=== PATIENT | female | born 1990 | race Caucasian/White ===

== ENCOUNTER 2016-12-15 09:32 | Emergency (ER) | payer OTHER ==
[~2016-12-15] VITALS: Ht 165.1 cm; Wt 72.6 kg
[~2016-12-15 09:32] MED LIST: TYLENOL325 M1 PO
[2016-12-15 09:54] VITALS: BP 131/92
--- NOTE | 2016-12-15 09:58 | NUR ---
PATIENT TO BED 7 AT THIS TIME,
--- NOTE | 2016-12-15 10:00 | NUR ---
26/F BIB SELF C/O RLQ PAIN RADIATING UP SIDE X 3 DAYS, NO FEVER, MINIMAL URINARY BURNING. DENIES FEVER/N/V. BOWEL SOUNDS PRESENT X4. ABD FEEL SOFT, SLIGHTLY TENDER. STS LMP MID OCTOBER, STS HAS IRREGULAR PERIODS. URINE CUP PROIVDED FOR SAMPLE. PT AMBULATE TO RESTROOM.
--- NOTE | 2016-12-15 10:16 | NUR ---
Patient being evaluated by physician at bedside.
[2016-12-15] MEDS ORDERED: KETOROLAC 30 MG/ML VIAL IVP ONE (10:20)
--- NOTE | 2016-12-15 10:31 | NUR ---
20G IV TO LAC. BLOOD DRAWN AND SENT TO LAB. CT AT BEDSIDE TO TAKE PT.
--- NOTE | 2016-12-15 10:44 | NUR ---
PT BACK FROM CT. MEDS GIVEN PER DEC.
--- NOTE | 2016-12-15 11:15 | NUR ---
Patient being RE-evaluated by physician at bedside.
[2016-12-15 11:30] VITALS: BP 128/90
--- NOTE | 2016-12-15 11:31 | NUR ---
Patient discharged with v/s stable. Written and verbal after care instructions given and explained. Patient alert, oriented and verbalized understanding of instructions. Ambulatory with steady gait. All questions addressed prior to discharge. ID band removed. Patient advised to follow up with PMD. Rx of CIPRO, FLAGYL, NORCO 5-325, MOTRIN given. Patient educated on indication of medication including possible reaction and side effects. Opportunity to ask questions provided and answered.
== END 2016-12-15 11:31 | disposition home or self-care (01) ==
LOC: MED 09:37
DX: K57.32 Diverticulitis of large intestine without perforation or abscess without bleeding (principal)
CPT/HCPCS: 36415; 74176; 80053; 81001; 81025; 83690; 85025; 96374; 99285; J1885

== ENCOUNTER 2016-12-28 11:38 | Emergency (ER) | payer OTHER ==
[~2016-12-28] VITALS: Ht 162.6 cm; Wt 78.5 kg
[2016-12-28 11:44] VITALS: BP 137/80
--- NOTE | 2016-12-28 11:45 | NUR ---
PATIENT PRESENTS TO ED WITH LEFT KNEE ABRASION . PT STATES SHE WAS RIDING 4 WHEELERS THIS PAST MONDAY AND FELL, RESULTING IN ABRASION TO LEFT KNEE. PT ALSO STATES SHE DOESN'T HAVE ANY PAIN ASSOCIATED W/ABRASION, BUT HER KNEE FEELS VERY STIFF AND SHE IS UNABLE TO STRAIGHEN HER LEG COMPLETELY . DENIES N/V/D; ABRASION NOTED TO LEFT KNEE, SKIN IS OTHERWISE PINK/WARM/DRY; AAOX4 WITH SLOW AND DELIBERATE GAIT; LUNGS CLEAR BL; HR EVEN AND REGULAR; PT DENIES ANY FEVER, CP, SOB, OR COUGH AT THIS TIME; PATIENT STATES PAIN OF 0/10 AT THIS TIME; VSS; PATIENT POSITIONED FOR COMFORT; HOB ELEVATED; BEDRAILS UP X2; BED DOWN. ER MD MADE AWARE OF PT STATUS.
--- NOTE | 2016-12-28 12:25 | NUR ---
Diane AT BEDSIDE.
--- NOTE | 2016-12-28 13:15 | NUR ---
PT RESTING QUIETLY ON GURCLOUDCROFT.
[2016-12-28 13:48] VITALS: BP 133/74
--- NOTE | 2016-12-28 13:50 | NUR ---
Patient discharged with v/s stable. Written and verbal after care instructions given and explained. Patient alert, oriented and verbalized understanding of instructions. Ambulatory with steady gait. All questions addressed prior to discharge. ID band removed. Patient advised to follow up with PMD. Rx of KEFLEX AND NORCO given. Patient educated on indication of medication including possible reaction and side effects. Opportunity to ask questions provided and answered.
== END 2016-12-28 13:50 | disposition home or self-care (01) ==
LOC: MED 11:38
DX: S80.212A Abrasion, left knee, initial encounter (principal); Z90.49 Acquired absence of other specified parts of digestive tract; V19.9XXA Pedal cyclist (driver) (passenger) injured in unspecified traffic accident, initial encounter; Y93.89 Activity, other specified; Y92.89 Other specified places as the place of occurrence of the external cause; Y99.8 Other external cause status
CPT/HCPCS: 73562; 99284; Q0092

== ENCOUNTER 2017-02-28 11:07 | Emergency (ER) | payer OTHER ==
[~2017-02-28] VITALS: Ht 162.6 cm; Wt 75.7 kg
[~2017-02-28 11:07] MED LIST changes: +ACET-2619 PO; -TYLENOL325 M1 PO
[2017-02-28 12:28] VITALS: BP 131/97
--- NOTE | 2017-02-28 13:09 | NUR ---
Patient ambulated to bed 07.
--- NOTE | 2017-02-28 13:12 | NUR ---
Patient being evaluated by Dr. Bird at bedside.
--- NOTE | 2017-02-28 13:16 | NUR ---
27/F c/o right eye pain since yesterday accompanied by sore throat. Pt states the symptoms started yesterday. Patient c/o drainage from right eye, yellow, sticky, itchiness to right eye. Right eye sclera appears red, no drainage at this time. Afebrile. VSS.
--- NOTE | 2017-02-28 13:35 | NUR ---
Patient discharged with v/s stable. Written and verbal after care instructions given and explained. Patient alert, oriented and verbalized understanding of instructions. Ambulatory with steady gait. All questions addressed prior to discharge. ID band removed. Patient advised to follow up with PMD. Rx of KEFLEX.,GENTAMICIN given. Patient educated on indication of medication including possible reaction and side effects. Opportunity to ask questions provided and answered.
--- NOTE | 2017-02-28 13:35 | NUR ---
Chart checked and completed. The patient's care was reviewed and supervised by Adelso Hamilton RN.
[2017-02-28 13:40] VITALS: BP 123/84
== END 2017-02-28 13:35 | disposition home or self-care (01) ==
LOC: MED 11:07
DX: H10.9 Unspecified conjunctivitis (principal); J03.90 Acute tonsillitis, unspecified; R03.0 Elevated blood-pressure reading, without diagnosis of hypertension
CPT/HCPCS: 99283

== ENCOUNTER 2019-04-15 18:42 | Emergency (ER) | payer OTHER ==
[~2019-04-15] VITALS: Ht 160 cm; Wt 87.3 kg
[2019-04-15 18:44] VITALS: BP 145/75
--- NOTE | 2019-04-15 19:00 | NUR ---
PT C/O LLQ PAIN X1 DAY;STARTED FROM THE RIGHT-SIDED LOWER ABDOMEN AND MOVED TO THE LEFT LOWER ABDOMINAL PAIN TODAY. PT REPORTS CONSTANT SHARP AND CRAMPING PAIN THAT RADIATES TO LT LOWER BACK AT 10/10, TX WITH TYLENOL WITH SOME RELIEF. PT REPORTS BROWNISH ORANGE VAGINAL DISCHARGE YESTERDAT AND SPOTTING STARTING TODAY. NO PAINFUL URINATION, N/V/D, OR FEVER. LAST BM THIS MORNING. PT DENIES ANY FEVER, CP, SOB, OR COUGH AT THIS TIME; PATIENT STATES PAIN OF 10/10 AT THIS TIME; VSS; PATIENT POSITIONED FOR COMFORT; HOB ELEVATED; BEDRAILS UP X1; BED DOWN. ER MD MADE AWARE OF PT STATUS.
--- NOTE | 2019-04-15 19:15 | NUR ---
REPORT GIVEN AND CARE TRANSFERED TO SANDRA JOHNSON.
[2019-04-15] MEDS ORDERED: IBUPROFEN 600 MG TAB PO ONE (19:20)
--- NOTE | 2019-04-15 19:26 | NUR ---
PT TAKEN TO XRAY
[2019-04-15 19:38] LABS: APPEARANCE,URINE CLEAR (CLEAR); BILIRUBIN,URINE NEGATIVE (NEGATIVE); BLOOD, URINE 1+ (NEGATIVE); COLOR,URINE YELLOW (YELLOW); LEUKOCYTE ESTERASE ,URINE NEGATIVE (NEGATIVE); NITRITE, URINE NEGATIVE (NEGATIVE); PH,URINE 6.5 (5.0-9.0); UGLUCOSE NEGATIVE (NEGATIVE)
--- NOTE | 2019-04-15 19:40 | NUR ---
PT BACK FROM X-RAY, PT POSITION FOR COMFORT. PT ACTING APPROPRIALTY, STATES 10 LLQ PAIN; MEDICATION ADMINISTERED AT THIS TIME. WILL CONTINUE TO MONITOR.
--- NOTE | 2019-04-15 19:45 | NUR ---
US AT BEDSIDE.
--- NOTE | 2019-04-15 20:44 | NUR ---
PT STATES SHE FEELS A LOT BETTER AND PAIN HAS DECREASED TO 2/10, STATES COPING.
[2019-04-15 21:03] VITALS: BP 134/71
== END 2019-04-15 21:02 | disposition home or self-care (01) ==
LOC: MED 18:42
DX: K59.00 Constipation, unspecified (principal); N32.89 Other specified disorders of bladder; Z79.899 Other long term (current) drug therapy
CPT/HCPCS: 74018; 76856; 81003; 81025; 99284; Q0092

== ENCOUNTER 2019-07-22 12:08 | Emergency (ER) | payer OTHER ==
[~2019-07-22] VITALS: Ht 162.6 cm; Wt 83.5 kg
[2019-07-22 12:11] VITALS: BP 129/69
--- NOTE | 2019-07-22 12:11 | NUR ---
Patient ambulated to bed 8. RN evaluating patient at bedside.
--- NOTE | 2019-07-22 12:27 | NUR ---
Dr. Ba evaluating patient at bedside.
[2019-07-22] MEDS ORDERED: KETOROLAC 30 MG/ML VIAL IM ONE (12:35)
--- NOTE | 2019-07-22 12:36 | NUR ---
C/O R SHOULDER PAIN X4 DAYS S/P MOVING BOXES. PT STATES SHE CANNOT MOVE HER SHOULDER UPWARDS. LINDA NUMBNESS/TINGLING, <3 SEC CAP REFIL, +2 RADIAL PULSE TO R HAND. PT DOES NOT KNOW IF SHE PULLED A MUSCLE OR NOT. PT STATES THE PAIN HAS BEEN GETTING GRADUALLY WORSE. BED IN LOW POSITION, SIDE RAIL UP X1
[2019-07-22 13:26] VITALS: BP 125/72
--- NOTE | 2019-07-22 13:26 | NUR ---
Patient discharged with v/s stable. Written and verbal after care instructions given and explained. Patient alert, oriented and verbalized understanding of instructions. Ambulatory with steady gait. All questions addressed prior to discharge. ID band removed. Patient advised to follow up with PMD. Rx of Flexeril 10mg, Ibuprofen 800mg given. Patient educated on indication of medication including possible reaction and side effects. Opportunity to ask questions provided and answered.
== END 2019-07-22 13:26 | disposition home or self-care (01) ==
LOC: MED 12:08
DX: S46.911A Strain of unspecified muscle, fascia and tendon at shoulder and upper arm level, right arm, initial encounter (principal); Z79.1 Long term (current) use of non-steroidal anti-inflammatories (NSAID); X50.0XXA Overexertion from strenuous movement or load, initial encounter; Y93.89 Activity, other specified; Y92.89 Other specified places as the place of occurrence of the external cause; Y99.8 Other external cause status
CPT/HCPCS: 73030; 96372; 99283; J1885; Q0092

== ENCOUNTER 2020-08-16 12:43 | Emergency (ER) | payer OTHER ==
[~2020-08-16] VITALS: Ht 162.6 cm; Wt 84.8 kg
[2020-08-16 12:50] VITALS: BP 114/87
--- NOTE | 2020-08-16 13:16 | NUR ---
DR. SHEARER AT BEDSIDE.
[2020-08-16] MEDS ORDERED: PROCHLORPERAZINE 10 MG/2 ML VIAL IM STA (13:20)
[2020-08-16] MEDS ORDERED: methocarbamoL 500 MG TAB PO STA (13:20)
[2020-08-16] MEDS ORDERED: diazePAM 5 MG TAB PO ONE (13:20)
[2020-08-16] MEDS ORDERED: KETOROLAC 30 MG/ML VIAL IM ONE (13:20)
--- NOTE | 2020-08-16 13:53 | NUR ---
30 Y/F PRESENTS TO ED C C/O CONSTANT LEFT OCCIPITAL HEADACHE RADIATING TO LEFT TRAPEZIUS MUSCLE WITH PRESSURE/THROBBING SENSATION AND DIZZINESS FOR 7 DAYS, PT REPORTS SHE HAS BEEN TAKING IBUPROFEN C NO RELIEF. PT STATES HAD ONE EPISODE 5 DAYS AGO. DENIES BLURRY VISION, LIGHT SENSITIVITY, DIARRHEA, COUGH, FEVER, SOB, CP, OR SICK CONTACT. DNEIES TRAUMA OR INJURY TO THE HEAD. PMH: DENIES MEDS: DENIES
[2020-08-16 14:50] VITALS: BP 114/87
--- NOTE | 2020-08-16 14:50 | NUR ---
Patient discharged with v/s stable. Written and verbal after care instructions given and explained. Patient alert, oriented and verbalized understanding of instructions. Ambulatory with steady gait. All questions addressed prior to discharge. ID band removed. Patient advised to follow up with PMD. Rx of ATIVAN AND ROVAXIN given. Patient educated on indication of medication including possible reaction and side effects. Opportunity to ask questions provided and answered.
== END 2020-08-16 14:50 | disposition home or self-care (01) ==
LOC: MED 12:43
DX: M62.830 Muscle spasm of back (principal); M54.2 Cervicalgia; R51.9 Headache, unspecified
CPT/HCPCS: 96372; 99284; J0780; J1885

== ENCOUNTER 2021-07-18 09:18 | Emergency (ER) | payer OTHER ==
[~2021-07-18] VITALS: Ht 165.1 cm; Wt 84.4 kg
[2021-07-18 09:31] VITALS: BP 119/53
--- NOTE | 2021-07-18 09:35 | NUR ---
PATIENT SENT TO LOBBY
--- NOTE | 2021-07-18 10:17 | NUR ---
TAKEN TO CHAIR B
[2021-07-18] MEDS ORDERED: predniSONE 20 MG TAB PO ONE (10:30)
--- NOTE | 2021-07-18 10:35 | NUR ---
PRESENTS TO ED WITH C/O GENERALIZED RED AND ITCHY BODY RASH X5 DAYS. DENIES USE OF ANY NEW BODY PRODUCTS OR DETERGENTS. REPORTS USING BENADRYL WITH NO RELIEF. PATIENT STATES SHE WAS SEEN AT URGENT CARE ON MONDAY FOR SAME SYMPTOMS BUT WAS D/C AND TOLD TO CONTINUE USING BENADRYL, STATES SHE WAS TOLD TO COME TO ED IF RASH WORSENED. PATIENT DENIES CP, SOB, FEVER, CHILLS, N/V/D.
[2021-07-18] MEDS ORDERED: PRED20TA5 PO (10:46)
[2021-07-18 10:52] VITALS: BP 119/53
== END 2021-07-18 10:53 | disposition home or self-care (01) ==
LOC: MED 09:18
DX: R21 Rash and other nonspecific skin eruption (principal); Z79.899 Other long term (current) drug therapy
CPT/HCPCS: 99283; J7512

== ENCOUNTER 2021-07-20 17:23 | Emergency (ER) | payer OTHER ==
[~2021-07-20] VITALS: Ht 162.6 cm; Wt 85.5 kg
[~2021-07-20 17:23] MED LIST changes: +PRED20TA5 PO
[2021-07-20 17:27] VITALS: BP 142/75
--- NOTE | 2021-07-20 17:37 | NUR ---
AMBULATED TO BED 5
--- NOTE | 2021-07-20 17:40 | NUR ---
31 YO FEMALE BIBS WITH C/O GENERAIZED ITCHY RASH X 8 DAYS, BRUISES ON ABDOMEN & LEFT THIGH X 3 DAYS AND C/O DIZZINESS X TODAY. SEEN HERE 07/18/21 FOR RASH & GOT PREDNISONE AND HAS BEEN TAKING MEDICATION ALONG WITH BENADRYL WITH NO RELIEF. PATIENT HAS APT TO SEE PCP ON THE . A&OX4, VSS. PMH: GALL BLADDER REMOVAL 2007 NKDA
--- NOTE | 2021-07-20 18:19 | NUR ---
ACCUCHECK 116
[2021-07-20] MEDS ORDERED: ACETAMINOPHEN 120 MG SUPP RC ONE (18:21)
--- NOTE | 2021-07-20 18:43 | NUR ---
EKG DONE NSR AT 60 BPM.
--- NOTE | 2021-07-20 19:02 | NUR ---
BLOOD SAMPLES COLLECTED AND WALKED TO LAB.
[2021-07-20 19:09] LABS: BASOPHILS % (AUTO) 0.3 % (0.0-2.0); EOSINOPHILS % (AUTO) 0.3 % (0.0-4.0); HEMATOCRIT 36.2 % (36-48); HEMOGLOBIN 11.9 g/dL (12.0-16.0); LYMPHOCYTES # (AUTO) 2.4 K/uL (2.5-16.5); MEAN CORPUSCULAR HEMOGLOBIN 27 pg (27-31); MEAN CORPUSCULAR HGB CONC 33 g/dL (33-37); MEAN CORPUSCULAR VOLUME 81.8 fL (80-94); MONOCYTES # (AUTO) 0.6 K/uL (0.8-1.0); MONOCYTES % (AUTO) 5.7 % (1.7-9.3); NEUTROPHILS # (AUTO) 7.2 K/uL (1.8-7.7); NEUTROPHILS % (AUTO) 70.7 % (42.2-75.2); PLATELET COUNT (AUTO) 258 K/uL (140-450); RED BLOOD CELL COUNT(AUTO) 4.43 MIL/uL (4.20-5.40); RED CELL DISTRIBUTION WIDTH 15.4 % (11.6-13.7); WHITE BLOOD COUNT (AUTO) 10.2 K/uL (4.8-10.8)
--- NOTE | 2021-07-20 19:11 | NUR ---
REPORT AND CONTINUATION OF CARE GIVEN TO SANDRA TATUM.
[2021-07-20] MEDS ORDERED: ELIMC TP (19:36)
[2021-07-20] MEDS ORDERED: PRED20TA5 PO (19:36)
[2021-07-20] MEDS ORDERED: PRED10TA5 PO (19:36)
--- NOTE | 2021-07-20 20:15 | NUR ---
Patient discharged with v/s stable. Written and verbal after care instructions given and explained. Patient alert, oriented and verbalized understanding of instructions. Ambulatory with steady gait. All questions addressed prior to discharge. ID band removed. Patient advised to follow up with PMD. Rx of PREDNISONE AND PERMETHRIN given. Patient educated on indication of medication including possible reaction and side effects. Opportunity to ask questions provided and answered.
== END 2021-07-20 20:15 | disposition home or self-care (01) ==
LOC: MED 17:23
DX: R21 Rash and other nonspecific skin eruption (principal); F41.9 Anxiety disorder, unspecified
CPT/HCPCS: 36415; 85025; 93005; 99284

== ENCOUNTER 2021-12-30 19:44 | Emergency (ER) | payer OTHER ==
[~2021-12-30] VITALS: Ht 162.6 cm; Wt 74.4 kg
[~2021-12-30 19:44] MED LIST changes: +ELIMC TP; +PRED10TA5 PO
[2021-12-30 19:50] VITALS: BP 141/90
--- NOTE | 2021-12-30 19:56 | NUR ---
PT TAKEN TO BED 12, PLACED IN GOWN.
--- NOTE | 2021-12-30 19:57 | NUR ---
Patient BIB by family from home. C/O Pelvic pain x 2 weeks. Patient reported, had on and off vaginal bleeding last month. Patient used test - negative. A/O,X4, no vaginal bleeding, no vaginal discharge, lower back pain, pelvic pain.
[2021-12-30] MEDS ORDERED: KETOROLAC 15 MG/ML VIAL IM ONE (20:45)
--- NOTE | 2021-12-30 20:48 | NUR ---
Dr. Corrales at bedside to exam patient.
[2021-12-30 20:55] LABS: APPEARANCE,URINE CLEAR (CLEAR); BILIRUBIN,URINE NEGATIVE (NEGATIVE); BLOOD, URINE TRACE-I (NEGATIVE); COLOR,URINE YELLOW (YELLOW); LEUKOCYTE ESTERASE ,URINE NEGATIVE (NEGATIVE); NITRITE, URINE NEGATIVE (NEGATIVE); UGLUCOSE NEGATIVE (NEGATIVE)
--- NOTE | 2021-12-30 20:57 | NUR ---
Ultrasound at bedside.
[2021-12-30 21:06] LABS: RBC,URINE 0-5 /HPF (0-5); WBC,URINE NONE SEEN /HPF (0-5)
[2021-12-30 21:11] LABS: BASOPHILS # (AUTO) 0.1 K/uL (0.00-0.22); BASOPHILS % (AUTO) 1.1 % (0.0-2.0); EOSINOPHILS % (AUTO) 0.4 % (0.0-4.0); HEMATOCRIT 36.7 % (36-48); HEMOGLOBIN 12.1 g/dL (12.0-16.0); LYMPHOCYTES # (AUTO) 2.4 K/uL (2.5-16.5); MEAN CORPUSCULAR HEMOGLOBIN 28 pg (27-31); MEAN CORPUSCULAR HGB CONC 33 g/dL (33-37); MEAN CORPUSCULAR VOLUME 83.6 fL (80-94); MONOCYTES # (AUTO) 0.5 K/uL (0.8-1.0); MONOCYTES % (AUTO) 5.7 % (1.7-9.3); NEUTROPHILS # (AUTO) 5.7 K/uL (1.8-7.7); NEUTROPHILS % (AUTO) 65.8 % (42.2-75.2); PLATELET COUNT (AUTO) 262 K/uL (140-450); RED BLOOD CELL COUNT(AUTO) 4.39 MIL/uL (4.20-5.40); RED CELL DISTRIBUTION WIDTH 14.9 % (11.6-13.7); WHITE BLOOD COUNT (AUTO) 8.7 K/uL (4.8-10.8)
[2021-12-30 21:17] LABS: ANION GAP 13.7 (8-16); CARBON DIOXIDE 26.7 mmol/L (21-32); CREATININE 0.8 mg/dL (0.6-1.3); POTASSIUM 4.4 mmol/L (3.5-5.1)
[2021-12-30 21:23] LABS: ALBUMIN 3.5 g/dL (3.4-5.0); TOTAL BILIRUBIN 0.3 mg/dL (0.0-1.0)
[2021-12-30] MEDS ORDERED: IBUP-2213 PO (22:14)
[2021-12-30 22:35] VITALS: BP 141/90
== END 2021-12-30 22:35 | disposition home or self-care (01) ==
LOC: MED 19:44
DX: N93.9 Abnormal uterine and vaginal bleeding, unspecified (principal); Z90.49 Acquired absence of other specified parts of digestive tract; Z79.899 Other long term (current) drug therapy; Z88.8 Allergy status to other drugs, medicaments and biological substances
CPT/HCPCS: 36415; 76856; 80053; 81001; 81025; 83690; 85025; 93976; 96372; 99284; J1885; Q0092

== ENCOUNTER 2022-01-04 10:59 | Emergency (ER) | payer OTHER ==
[~2022-01-04] VITALS: Ht 162.6 cm; Wt 76.2 kg
[~2022-01-04 10:59] MED LIST changes: +IBUP-2213 PO
[2022-01-04 11:08] VITALS: BP 139/85
--- NOTE | 2022-01-04 11:10 | NUR ---
PT AMBULATED TO ER BED 7 WITH A STEADY GAIT.
--- NOTE | 2022-01-04 11:28 | NUR ---
32 Y/O FEMALE C/O VAGINAL BLEEDING WITH LARGE CLOTS AND PAIN TO LOWER BACK PAIN RADIATING TO THE THIGHS DESCRIBED SHARP AND CRAMPY. STATED THAT PO PAIN MEDICATION INEFFECTIVE. NO BURNING UPON URINATION. DENIES FEVER/CHILLS. DENIES N/V. DENIES PMH ALLERGIES: BENADRYL
--- NOTE | 2022-01-04 11:41 | NUR ---
HANDED BLOOD SAMPLES TO GISSEL
[2022-01-04 11:52] LABS: BASOPHILS % (AUTO) 0.4 % (0.0-2.0); EOSINOPHILS # (AUTO) 0.1 K/uL (0-0.4); EOSINOPHILS % (AUTO) 0.8 % (0.0-4.0); HEMATOCRIT 37.2 % (36-48); HEMOGLOBIN 12.3 g/dL (12.0-16.0); LYMPHOCYTES # (AUTO) 2.6 K/uL (2.5-16.5); MEAN CORPUSCULAR HEMOGLOBIN 28 pg (27-31); MEAN CORPUSCULAR HGB CONC 33 g/dL (33-37); MEAN CORPUSCULAR VOLUME 83.6 fL (80-94); MONOCYTES # (AUTO) 0.5 K/uL (0.8-1.0); MONOCYTES % (AUTO) 6.6 % (1.7-9.3); NEUTROPHILS # (AUTO) 4.7 K/uL (1.8-7.7); NEUTROPHILS % (AUTO) 59.2 % (42.2-75.2); PLATELET COUNT (AUTO) 268 K/uL (140-450); RED BLOOD CELL COUNT(AUTO) 4.44 MIL/uL (4.20-5.40); RED CELL DISTRIBUTION WIDTH 14.9 % (11.6-13.7); WHITE BLOOD COUNT (AUTO) 7.9 K/uL (4.8-10.8)
[2022-01-04] MEDS ORDERED: KETOROLAC 60 MG/2 ML VIAL IM ONE (12:10)
[2022-01-04] MEDS ORDERED: MEDR10TA PO (13:00)
[2022-01-04] MEDS ORDERED: ACET-8386 PO (13:00)
[2022-01-04] MEDS ORDERED: IBUP-2213 PO (13:00)
[2022-01-04 13:24] VITALS: BP 117/74
--- NOTE | 2022-01-04 13:25 | NUR ---
Patient discharged with v/s stable. Written and verbal after care instructions given and explained. Patient alert, oriented and verbalized understanding of instructions. Ambulatory with steady gait. All questions addressed prior to discharge. ID band removed. Patient advised to follow up with PMD. Rx of HYDROCODONE/ACETAMINOPHEN, IBUPROFEN, PROVERA given. Patient educated on indication of medication including possible reaction and side effects. Opportunity to ask questions provided and answered.
== END 2022-01-04 13:24 | disposition home or self-care (01) ==
LOC: MED 10:59
DX: N93.8 Other specified abnormal uterine and vaginal bleeding (principal); M54.50 Low back pain, unspecified; Z79.1 Long term (current) use of non-steroidal anti-inflammatories (NSAID); Z79.899 Other long term (current) drug therapy; Z88.8 Allergy status to other drugs, medicaments and biological substances
CPT/HCPCS: 36415; 81002; 81025; 85025; 96372; 99283; J1885

== ENCOUNTER 2022-07-04 12:12 | Emergency (ER) | payer OTHER ==
[~2022-07-04] VITALS: Ht 165.1 cm; Wt 78.0 kg
[~2022-07-04 12:12] MED LIST changes: +ACET-8386 PO; +MEDR10TA PO
[2022-07-04 12:33] VITALS: BP 116/98
--- NOTE | 2022-07-04 13:30 | NUR ---
32 y/o female bib self from home, pt presents to ed with c/o low back pain that started 4 days ago, pt states that the back pain sometimes radiates up her neck and down her arms and legs. pt states pain is worsened when she is sitting down or hunched over, pain is improved with standing. denies any incident of trauma or injury to the back, dysuria, hematuria, abd pain, n/v/d. pmh: denies allergy: diphenhydramine med: tylenol, ibuprofen
[2022-07-04] MEDS ORDERED: CYCL-711 PO (13:32)
[2022-07-04] MEDS ORDERED: IBUP-2213 PO (13:32)
[2022-07-04 13:44] VITALS: BP 112/67
--- NOTE | 2022-07-04 13:44 | NUR ---
Patient discharged with v/s stable. Written and verbal after care instructions given. Patient alert, oriented and verbalized understanding of instructions. Ambulatory with steady gait. All questions addressed prior to discharge. ID band removed. Patient advised to follow up with PMD. Rx of Flexeril and Ibuprofen given. Opportunity to ask questions provided and answered.
== END 2022-07-04 13:44 | disposition home or self-care (01) ==
LOC: MED 12:12
DX: S39.012A Strain of muscle, fascia and tendon of lower back, initial encounter (principal); Z79.899 Other long term (current) drug therapy; Z88.8 Allergy status to other drugs, medicaments and biological substances; X58.XXXA Exposure to other specified factors, initial encounter; Y93.89 Activity, other specified; Y92.89 Other specified places as the place of occurrence of the external cause; Y99.8 Other external cause status
CPT/HCPCS: 99283

== ENCOUNTER 2023-05-04 11:45 | Observation (INO) | payer OTHER ==
[~2023-05-04] VITALS: Ht 162.6 cm; Wt 83.9 kg
[~2023-05-04 11:45] MED LIST changes: -ACET-8386 PO; +ACET-8905 PO; +CYCL-711 PO
[2023-05-04] MEDS ORDERED: PRETAB PO (12:37)
[2023-05-04 13:41] VITALS: BP 132/84; PULSE 108; RESP 18; TEMP 98
--- NOTE | 2023-05-04 13:57 | NUR ---
PATIENT HAS BEEN SCREENED AND CATEGORIZED LOW NUTRITION RISK. PATIENT WILL BE SEEN WITHIN 7 DAYS OF ADMISSION. 05/11/[address]
[2023-05-04] MEDS ORDERED: ONDA-188 PO (19:33)
[2023-05-04] MEDS ORDERED: IBUP-2213 PO (19:33)
== END 2023-05-04 14:28 | disposition home or self-care (01) ==
LOC: MLD 11:45
PROVIDERS: ADMIT Obstetrics & Gynecology; ATTEND Obstetrics & Gynecology
DX: O26.893 Other specified pregnancy related conditions, third trimester (principal); R10.9 Unspecified abdominal pain; Z20.822 Contact with and (suspected) exposure to COVID-19; Z3A.42 42 weeks gestation of pregnancy
CPT/HCPCS: 76805; 87426; G0378; Q0092; 81000

== ENCOUNTER 2023-05-04 15:57 | Emergency (ER) | payer OTHER ==
[~2023-05-04] VITALS: Ht 162.6 cm; Wt 94.3 kg
[~2023-05-04 15:57] MED LIST changes: +PRETAB PO
[2023-05-04 16:10] VITALS: BP 131/68; PULSE 93; RESP 18; TEMP 97.8; O2SAT 96
--- NOTE | 2023-05-04 17:20 | NUR ---
PT AMBULATED TO BED 12
--- NOTE | 2023-05-04 18:19 | NUR ---
CHUCKY PT REPORT , 39 WEEKS , VAG BLEED, NO MOVEMENT, PT STATED SHE WAS AT LABOR AND DELIVERY , NO HEART TONE DETECTED ,ADVICED PT TO COME TO THE ER, DR RAE MADE AWARE
--- NOTE | 2023-05-04 18:34 | NUR ---
DR. RAE AT EVALUATING PT. INFORMED PT THAT SHE CURRENTLY IS NOT . ASSESSED PT'S VAGINAL BLEEDING. NO BLOOD NOTED UPON VISUAL ASSESSMENT. NO PERIPAD IN PLACE. TO PERFORM BLOOD WORK.
[2023-05-04] MEDS ORDERED: KETOROLAC 15 MG/ML VIAL IVP ONE (18:45)
[2023-05-04] MEDS ORDERED: ONDANSETRON 4 MG/2 ML VIAL IVP ONE (18:45)
[2023-05-04 18:56] LABS: BASOPHILS % (AUTO) 0.2 % (0.0-2.0); EOSINOPHILS % (AUTO) 0.2 % (0.0-4.0); HEMATOCRIT 40.2 % (36-48); HEMOGLOBIN 13.2 g/dL (12.0-16.0); LYMPHOCYTES % (AUTO) 25.4 % (20.5-51.1); MEAN CORPUSCULAR HEMOGLOBIN 28 pg (27-31); MEAN CORPUSCULAR HGB CONC 33 g/dL (33-37); MEAN CORPUSCULAR VOLUME 84.8 fL (80-94); MONOCYTES # (AUTO) 0.7 K/uL (0.8-1.0); MONOCYTES % (AUTO) 6.2 % (1.7-9.3); NEUTROPHILS # (AUTO) 8.2 K/uL (1.8-7.7); PLATELET COUNT (AUTO) 248 K/uL (140-450); RED BLOOD CELL COUNT(AUTO) 4.74 MIL/uL (4.20-5.40); RED CELL DISTRIBUTION WIDTH 14.1 % (11.6-13.7)
[2023-05-04 19:09] LABS: ALBUMIN 3.8 g/dL (3.4-5.0); ANION GAP 15.6 (8-16); CREATININE 0.6 mg/dL (0.6-1.3); POTASSIUM 3.6 mmol/L (3.5-5.1); TOTAL BILIRUBIN 0.4 mg/dL (0.0-1.0)
[2023-05-04] MEDS ORDERED: IBUP-2213 PO (19:33)
[2023-05-04] MEDS ORDERED: ONDA-188 PO (19:33)
[2023-05-04 19:48] VITALS: BP 132/94; PULSE 89; RESP 20; TEMP 98.7; O2SAT 97
--- NOTE | 2023-05-04 19:48 | NUR ---
Patient discharged. Written and verbal after care instructions given and explained. Patient alert, oriented and verbalized understanding of instructions. Ambulatory. All questions addressed prior to discharge. ID band removed. Patient advised to follow up with PMD. Rx of Ibuprofen and Ondansetron ODT given. Patient educated on indication of medication including possible reaction and side effects. Opportunity to ask questions provided and answered.
--- NOTE | 2023-05-04 19:48 | NUR ---
Unable to do pain reassessment due to pt has dc without the reassessment due time.
== END 2023-05-04 19:48 | disposition home or self-care (01) ==
LOC: MED 15:57
DX: N93.9 Abnormal uterine and vaginal bleeding, unspecified (principal); Z90.49 Acquired absence of other specified parts of digestive tract; Z79.899 Other long term (current) drug therapy; Z79.1 Long term (current) use of non-steroidal anti-inflammatories (NSAID); Z88.8 Allergy status to other drugs, medicaments and biological substances
CPT/HCPCS: 36415; 80053; 81002; 81025; 83690; 85025; 96374; 96375; 99284; J1885; J2405

== ENCOUNTER 2024-03-28 13:39 | Emergency (ER) | payer OTHER ==
[~2024-03-28] VITALS: Ht 162.6 cm; Wt 86.2 kg
[~2024-03-28 13:39] MED LIST changes: -ACET-2619 PO; -ACET-8905 PO; -CYCL-711 PO; -ELIMC TP; -MEDR10TA PO; +ONDA-188 PO; -PRED10TA5 PO; -PRED20TA5 PO
[2024-03-28 13:48] VITALS: BP 108/67; PULSE 75; RESP 16; TEMP 99.3; O2SAT 96
[2024-03-28] MEDS: ACETAMINOPHEN EXTRA STRENGTH 500 MG TAB PO ONE (14:45)
[2024-03-28] MEDS: KETOROLAC 30 MG/ML VIAL IM ONE (14:45)
[2024-03-28] MEDS ORDERED: KETOROLAC 30 MG/ML VIAL ONE (15:37)
[2024-03-28] MEDS ORDERED: ACETAMINOPHEN EXTRA STRENGTH 500 MG TAB ONE (15:37)
== END 2024-03-28 15:48 | disposition home or self-care (01) ==
LOC: MED 13:39
DX: M25.521 Pain in right elbow (principal); M79.642 Pain in left hand; Z79.899 Other long term (current) drug therapy; Z88.8 Allergy status to other drugs, medicaments and biological substances
CPT/HCPCS: 73080; 73130; 81025; 96372; 99284; J1885